=== PATIENT | female | born 1970 | race American Indian/Alaskan Native ===

== ENCOUNTER 2016-12-24 07:02 | Inpatient (IN) | payer OTHER ==
[2016-12-19 14:55] VITALS: BMI 50.8
[2016-12-24] MEDS ORDERED: Lactated Ringer's 1,000 ML IV ONE ×2 (08:03→11:00)
[2016-12-24] MEDS ORDERED: Rocuronium 10 mg/ml (5 ml) ONE ×2 (09:07→12:14)
[2016-12-24] MEDS ORDERED: Propofol 10 mg/ml Inj (20 ML) ONE ×2 (09:07→12:55)
[2016-12-24] MEDS ORDERED: Midazolam 2 MG/2 ML VIAL ONE (09:10)
--- NOTE | 2016-12-24 10:45 | CP.PCM.HP ---
History of Present Illness - History of Present Illness History of Present Illness: 46yo female with long h/o menorrhagia and pelvic discomfort due to fibroid uterus. Evaluation done in office with EMB negative. Discussed all options of treatment with patient, patient opting for definitive treatment with removal of uterus. Discussed the R/B/A of surgery with patient and all patient questions answered. Present on Admission - Present on Admission Any Indicators Present on Admission: No History of DVT/PE: No History of Uncontrolled Diabetes: No Urinary Catheter: No Decubitus Ulcer Present: No Past Patient History - Past Medical History & Family History Past Medical History?: Yes - Past Social History Smoking Status: Never Smoked - CARDIAC Hx Cardiac Disorders: Yes Hx Hypertension: Yes - PULMONARY Hx Respiratory Disorders: No - NEUROLOGICAL Hx Neurological Disorder: No - HEENT Hx HEENT Problems: No - RENAL Hx Chronic Kidney Disease: No - ENDOCRINE/METABOLIC Hx Endocrine Disorders: No - HEMATOLOGICAL/ONCOLOGICAL Hx Blood Disorders: No - INTEGUMENTARY Hx Dermatological Problems: No - MUSCULOSKELETAL/RHEUMATOLOGICAL Hx Musculoskeletal Disorders: No - GASTROINTESTINAL Hx Gastrointestinal Disorders: No - GENITOURINARY/GYNECOLOGICAL Hx Genitourinary Disorders: No - PSYCHIATRIC Hx Psychophysiologic Disorder: Yes Hx Anxiety: Yes Hx Depression: Yes - SURGICAL HISTORY Hx Surgeries: Yes Hx Tonsillectomy: Yes (2005) - ANESTHESIA Hx Anesthesia: Yes Hx Anesthesia Reactions: No Hx Malignant Hyperthermia: No Has any member of the family had a problem w/ anesthesia?: No Meds Allergies/Adverse Reactions: Allergies Allergy/AdvReac Type Severity Reaction Status Date / Time apple Allergy SHORTNESS Verified 12/19/16 14:54 OF BREATH pear Allergy SHORTNESS Verified 12/19/16 14:54 OF BREATH clindamycin AdvReac RASH Verified 12/19/16 14:53 Penicillins AdvReac SHORTNESS Verified 12/19/16 14:52 OF BREATH Physical Exam - Constitutional Appears: Well, No Acute Distress - Head Exam Head Exam: NORMAL INSPECTION - Eye Exam Eye Exam: Normal appearance, PERRL - ENT Exam ENT Exam: Mucous Membranes Moist - Neck Exam Neck exam: Positive for: Normal Inspection - Respiratory Exam Respiratory Exam: Clear to Auscultation Bilateral, NORMAL BREATHING PATTERN - Cardiovascular Exam Cardiovascular Exam: REGULAR RHYTHM - GI/Abdominal Exam GI & Abdominal Exam: Normal Bowel Sounds Additional comments: Soft/NT/ND. Uterus palpable at umbilicus. - Extremities Exam Extremities exam: Positive for: normal inspection. Negative for: calf tenderness, pedal edema - Neurological Exam Neurological exam: Alert, Oriented x3 - Psychiatric Exam Psychiatric exam: Normal Affect, Normal Mood Results - Vital Signs Recent Vital Signs: Last Vital Signs Temp 98.4 F 12/24/16 07:36 Pulse 81 12/24/16 07:40 Resp 20 12/24/16 07:36 BP 146/90 12/24/16 07:36 Pulse Ox 94 L 12/24/16 07:36 - Labs Labs: Laboratory Results - last 24 hr 12/24/16 12/24/16 07:45 07:58 Blood Type O POSITIVE Blood Type Confirm O POSITIVE Antibody Screen Negative BBK History Checked No verified bt - Imaging and Cardiology US - abdomen Status: Image reviewed by me, Report reviewed by me Assessment & Plan - Assessment and Plan (Free Text) Assessment: Symptomatic fibroid uterus Plan: As above. Routine postop observation and care - Date & Time Date: 12/24/16 Time: 10:46
[2016-12-24] MEDS ORDERED: Succinylcholine 200 mg/10 ml Inj IV ONE (10:51)
[2016-12-24] MEDS ORDERED: Gentamicin 80mg/50ml NS 80 MG/50 ML BAG IVPB ONE (10:53)
[2016-12-24] MEDS ORDERED: Vancomycin 1 g Inj ONE (10:53)
[2016-12-24] MEDS ORDERED: Gentamicin IV 80mg/50ml NS(PREMIX) IVPB ONE (11:00)
[2016-12-24] MEDS ORDERED: Vancomycin 1 g Inj IVPB ONE (11:15)
[2016-12-24] MEDS ORDERED: Dexamethasone 4 mg/1 ml ONE (11:24)
[2016-12-24] MEDS ORDERED: Vasopressin 20 Units/ml Inj IV ONE (11:53)
[2016-12-24] MEDS ORDERED: Vasopressin 20 Units/ml Inj ONE (11:55)
[2016-12-24] MEDS ORDERED: Neostigmine Methylsulfate 3mg/3ml Syringe IV ONE (12:25)
[2016-12-24] MEDS ORDERED: Neostigmine Methylsulfate 2 MG/2 ML ML IV ONE ×2 (12:25→12:51)
[2016-12-24] MEDS ORDERED: Lactated Ringer's 1,000 ML IV SCH (13:13)
--- NOTE | 2016-12-24 13:20 | PCM.SURG1 ---
Surgeon's Initial Post Op Note - Surgeon's Notes Surgeon: Panfilo Religion Instructor: Franicsca Type of Anesthesia: General Endo Anesthesia Administered By: camilo Pre-Operative Diagnosis: Fibroid uterus Operative Findings: Fibroid uterus ~20wk size. Normal tubes/ovaries bilaterally Post-Operative Diagnosis: same Operation Performed: Supracervical hysterectomy, bilateral salpingectomy Specimen/Specimens Removed: Uterus Estimated Blood Loss: EBL {In ML}: 400 Blood Products Given: N/A Drains Used: No Drains Post-Op Condition: Good Date of Surgery/Procedure: 12/24/16 Time of Surgery/Procedure: 13:20
[2016-12-24] MEDS: HYDROmorphone 0.5 mg/0.5 ml ISec IVP PRN ×3 (13:40→14:10)
[2016-12-24] MEDS: Oxycodone/Acetaminophen 5/325 mg Tab PO PRN (19:04)
--- NOTE | 2016-12-25 00:36 | OP ---
PROCEDURE DATE: 12/24/2016 PREOPERATIVE DIAGNOSIS: Symptomatic fibroid uterus. POSTOPERATIVE DIAGNOSIS: Symptomatic fibroid uterus. OPERATION PERFORMED: Supracervical hysterectomy via Pfannenstiel incision, bilateral salpingectomy. COMPLICATIONS: None. ESTIMATED BLOOD LOSS: 400 mL. URINE OUTPUT: 100 mL of clear urine at the end of procedure. FLUIDS: 1400 mL of Lactated Ringer's. SURGEON: Dr. Nora Whittaker. NUMERICAL CONTROL NESTING OPERATOR: Dr. Winifred Espinosa. Dr. Espinosa was present from the beginning of the procedure to the end of procedure. Dr. Espinosa was integral in exposing the surgical field, controlling intraoperative bleeding, and surgical removal of the uterus. ANESTHESIA: General. ANESTHESIOLOGIST: Dr. Alcantara. OPERATIVE FINDINGS: Fibroid uterus approximately 20-week size, and normal tubes and ovaries bilaterally. COMPLICATIONS: None. PROCEDURE: The patient was taken to the operating room, where general anesthesia was found to be adequate. The patient was prepped and draped in a normal sterile fashion in the dorsal supine position. A Pfannenstiel skin incision was made with scalpel. This was carried down through to the underlying layer of fascia with the scalpel. Midline defect was made in fascial layer with a scalpel. The fascial incision was then extended bilaterally with curved Rey scissors. The fascial layer was then from the underlying rectus muscles, both bluntly and sharply with curved Rey scissors. The rectus muscles were at the midline. The peritoneum was then identified, tented up with Moraima clamps x2, entered sharply with Metzenbaum scissors. This peritoneal incision was then extended superiorly and inferiorly with good visualization of the urinary bladder. The abdomen and pelvis were explored and the above findings noted. The uterus was exteriorized. Due to the size of the fundal uterine fibroid, decision was made for removal of the fundal fibroid to continue with safely moving the uterus. The fundus of the uterus was injected with a vasopressin solution. The fundus of the uterus was incised with electrocautery. The fundal fibroid was removed both bluntly and sharply with electrocautery. After removal of the fibroid, this incision of closed with a running stitch of 0 Vicryl. The round ligaments of the uterus were isolated bilaterally, electrocauterized and transected with LigaSure device bilaterally. The anterior surface of the broad ligament was sharply dissected of the anterior surface of the uterus. The fallopian tubes and suspensory ligaments of the ovaries were isolated bilaterally, electrocauterized and transected with LigaSure device bilaterally. The uterine arteries were skeletonized and isolated bilaterally, clamped with Davin clamps x2 bilaterally, transected bilaterally, and suture ligated with 0 Vicryl x2 bilaterally. Phaneuf clamps were placed at the cervix bilaterally, transected off the cervix bilaterally and suture ligated with 0 Vicryl bilaterally. As per the patient request, a supracervical hysterectomy was completed. The uterine body was removed from the cervix by electrocautery device. The cervical stump was suture ligated with 0 Vicryl in a series of 3 [id number] stitches. The fallopian tubes were isolated bilaterally, electrocauterized and transected from the ovaries bilaterally. The uterus as well as the fallopian tubes bilaterally were sent to pathology. The abdomen and pelvis were irrigated with a copious amounts of warm normal saline. Reinspection of all surgical pedicles proved hemostasis. All instruments were removed from the patient. The peritoneal layer was closed with a running stitch of 2-0 chromic. The rectus muscles were reapproximated at the midline with a running stitch of 2-0 chromic. The fascial layer was closed with a running stitch of 0 Vicryl. Subcutaneous tissue was reapproximated with a running stitch of 3-0 plain. The skin was closed with subcutaneous stitch of 3.0 Vicryl. The patient tolerated the procedure well. All sponge count, lap count, and needle counts were correct x2. The patient was given vancomycin and gentamicin preoperatively. There were no complications. The patient was taken to the recovery room in awake and stable condition. Michael Whittaker MD
[2016-12-25 07:58] LABS: BASO % 0.2 % (0.0-2.0); EOS % 0.1 % (0.0-4.0); HEMATOCRIT 33.3 % (34.0-47.0); LYMPH # 2.3 K/uL (1.0-4.3); LYMPH % 18.9 % (20.0-40.0); MEAN CELL VOLUME 84.1 fl (81.0-99.0); MEAN CORPUSCULAR HEMOGLOBIN 27.6 pg (27.0-31.0); MEAN CORPUSCULAR HGB CONC 32.9 g/dL (33.0-37.0); MEAN PLATELET VOLUME 8.6 fl (7.2-11.7); MONO # 0.8 K/uL (0.0-0.8); MONO % 6.5 % (0.0-10.0); NEUT % 74.3 % (50.0-75.0); WHITE BLOOD COUNT 12.1 K/uL (4.8-10.8)
[2016-12-25] MEDS ORDERED: Enoxaparin 40 mg Syringe SC SCH ×2 (09:00→11:30)
[2016-12-25] MEDS: Oxycodone/Acetaminophen 5/325 mg Tab PO PRN (11:31)
[2016-12-25] MEDS: Venlafaxine 37.5 mg ER Cap PO SCH (15:10)
[2016-12-25] MEDS: Metoprolol Succinate 50 mg XL Tab PO SCH (15:10)
--- NOTE | 2016-12-25 16:30 | CP.PCM.PN ---
Subjective - Date & Time of Evaluation Date of Evaluation: 12/25/16 Time of Evaluation: 16:28 - Subjective Subjective: Patient without complaints at this time. Patient denies any problems with pain , bleeding, nausea or vomiting, chest pain or shortness of breath, fevers or chills. Patient reports tolerating small amounts of solid food. Patient reports voiding without any complications. Objective - Vital Signs/Intake and Output Vital Signs (last 24 hours): Temp Pulse Resp BP Pulse Ox 97.8 F 71 20 141/71 96 12/25/16 16:00 12/25/16 16:00 12/25/16 16:00 12/25/16 16:00 12/25/16 16:00 Intake and Output: 12/25/16 12/25/16 06:59 18:59 Intake Total 2000 Output Total 850 Balance 1150 - Medications Medications: Current Medications Bupropion HCl (Wellbutrin Sr 150 Mg) 300 mg PO DAILY [facility] Clonazepam (Klonopin) 1 mg PO BID@0900,2100 [facility] Enoxaparin Sodium (Lovenox) 40 mg SC DAILY@1100 [facility] PRN Reason: Protocol Last Admin: 12/25/16 11:20 Dose: 40 mg Hydrochlorothiazide (Hydrodiuril) 25 mg PO DAILY [facility] Last Admin: 12/25/16 15:10 Dose: 25 mg Hydromorphone HCl (Dilaudid) 0.5 mg IVP Q5MIN PRN PRN Reason: Pain, moderate (4-7) Lactated Ringer's (Lactated Ringer's) 1,000 mls @ 50 mls/hr IV .Q20H [facility] Lactated Ringer's (Lactated Ringer's) 1,000 mls @ 125 mls/hr IV .Q8H [facility] Last Admin: 12/25/16 05:14 Dose: 125 mls/hr Ibuprofen (Motrin Tab) 600 mg PO Q6 PRN PRN Reason: Pain, moderate (4-7) Last Admin: 12/25/16 06:16 Dose: 600 mg Metoprolol Succinate (Toprol Xl) 50 mg PO DAILY [facility] Last Admin: 12/25/16 15:10 Dose: 50 mg Ondansetron HCl (Zofran Inj) 4 mg IVP ONCE PRN PRN Reason: Nausea/Vomiting Oxycodone/Acetaminophen (Percocet 5/325 Mg Tab) 2 tab PO Q4 PRN PRN Reason: Pain, severe (8-10) Stop: 12/27/16 13:14 Last Admin: 12/25/16 11:31 Dose: 2 tab Venlafaxine HCl (Effexor Xr) 37.5 mg PO DAILY [facility] Last Admin: 12/25/16 15:10 Dose: 37.5 mg - Labs Labs: 12/25/16 07:15 - Constitutional Appears: Well, No Acute Distress - Respiratory Exam Respiratory Exam: NORMAL BREATHING PATTERN - Cardiovascular Exam Cardiovascular Exam: REGULAR RHYTHM - GI/Abdominal Exam Additional comments: Abdomen soft, nontender, nondistended. Incision clean, dry, intact. No erythema, swelling, induration Assessment and Plan - Assessment and Plan (Free Text) Assessment: Postop day #1 status post supracervical hysterectomy, bilateral salpingectomy. Patient recovering well. Plan: Venodyne's while in bed, Lovenox for DVT prophylaxis Advance diet as tolerated Out of bed ambulate Pain control Postop CBC Incentive spirometer
[2016-12-25] MEDS: Lactated Ringer's 1,000 ML IV SCH (21:47)
[2016-12-25] MEDS: buPROPion SR 150 MG TABLET PO SCH (21:52)
[2016-12-26 08:15] VITALS: BP 132/92; PULSE 69; RESP 20; TEMP 98.8; O2SAT 97
[2016-12-26] MEDS: Metoprolol Succinate 50 mg XL Tab PO SCH (08:49)
[2016-12-26] MEDS: Venlafaxine 37.5 mg ER Cap PO SCH (08:49)
[2016-12-26] MEDS: buPROPion SR 150 MG TABLET PO SCH (08:50)
[2016-12-26] MEDS: Lactated Ringer's 1,000 ML IV SCH (09:11)
--- NOTE | 2016-12-26 09:31 | CP.PCM.PN ---
Subjective - Date & Time of Evaluation Date of Evaluation: 12/26/16 Time of Evaluation: 09:29 - Subjective Subjective: Pt withoutcomplaints. Pain well controlled. Tolerating regular diet. Ambulating well. Voiding well. Objective - Vital Signs/Intake and Output Vital Signs (last 24 hours): Temp Pulse Resp BP Pulse Ox 98.8 F 69 20 132/92 H 97 12/26/16 08:14 12/26/16 08:14 12/26/16 08:14 12/26/16 08:14 12/26/16 08:14 - Medications Medications: Current Medications Bupropion HCl (Wellbutrin Sr 150 Mg) 300 mg PO DAILY [facility] Last Admin: 12/26/16 08:50 Dose: 300 mg Clonazepam (Klonopin) 1 mg PO BID@0900,2100 [facility] Last Admin: 12/26/16 09:03 Dose: 1 mg Enoxaparin Sodium (Lovenox) 40 mg SC DAILY@1100 [facility] PRN Reason: Protocol Last Admin: 12/25/16 11:20 Dose: 40 mg Hydrochlorothiazide (Hydrodiuril) 25 mg PO DAILY [facility] Last Admin: 12/26/16 08:49 Dose: 25 mg Hydromorphone HCl (Dilaudid) 0.5 mg IVP Q5MIN PRN PRN Reason: Pain, moderate (4-7) Lactated Ringer's (Lactated Ringer's) 1,000 mls @ 50 mls/hr IV .Q20H [facility] Last Admin: 12/26/16 09:11 Dose: 50 mls/hr Lactated Ringer's (Lactated Ringer's) 1,000 mls @ 125 mls/hr IV .Q8H [facility] Last Admin: 12/25/16 05:14 Dose: 125 mls/hr Ibuprofen (Motrin Tab) 600 mg PO Q6 PRN PRN Reason: Pain, moderate (4-7) Last Admin: 12/26/16 09:02 Dose: 600 mg Metoprolol Succinate (Toprol Xl) 50 mg PO DAILY [facility] Last Admin: 12/26/16 08:49 Dose: 50 mg Ondansetron HCl (Zofran Inj) 4 mg IVP ONCE PRN PRN Reason: Nausea/Vomiting Oxycodone/Acetaminophen (Percocet 5/325 Mg Tab) 2 tab PO Q4 PRN PRN Reason: Pain, severe (8-10) Stop: 12/27/16 13:14 Last Admin: 12/25/16 11:31 Dose: 2 tab Venlafaxine HCl (Effexor Xr) 37.5 mg PO DAILY [facility] Last Admin: 12/26/16 08:49 Dose: 37.5 mg - Labs Labs: 12/25/16 07:15 - Constitutional Appears: Well, No Acute Distress - Head Exam Head Exam: NORMAL INSPECTION - Eye Exam Eye Exam: Normal appearance, PERRL - ENT Exam ENT Exam: Mucous Membranes Moist - Respiratory Exam Respiratory Exam: Clear to Ausculation Bilateral, NORMAL BREATHING PATTERN - Cardiovascular Exam Cardiovascular Exam: REGULAR RHYTHM - GI/Abdominal Exam Additional comments: Soft/NT/ND. Inc C/D/I. No erythema, swelling, induration. Normal BS - Extremities Exam Extremities Exam: Normal Inspection. absent: Calf Tenderness, Pedal Edema Assessment and Plan - Assessment and Plan (Free Text) Assessment: POD #2 s/p Supracervical Hyst -- recovering well Plan: Discharge home with postop precautions F/U in 1 wk in office
--- NOTE | 2016-12-26 09:33 | CP.PCM.DIS ---
Provider - Provider Date of Admission: 12/24/16 13:13 Attending physician: Michael Whittaker MD Primary care physician: Michael Whittaker MD Time Spent in preparation of Discharge (in minutes): 10 Diagnosis - Discharge Diagnosis (1) Fibroid uterus Status: Acute Hospital Course - Lab Results Lab Results: Most Recent Lab Values WBC 12.1 K/uL (4.8-10.8) H 12/25/16 07:15 RBC 3.96 Mil/uL (3.80-5.20) 12/25/16 07:15 Hgb 11.0 g/dL (12.0-16.0) L 12/25/16 07:15 Hct 33.3 % (34.0-47.0) L 12/25/16 07:15 MCV 84.1 fl (81.0-99.0) 12/25/16 07:15 MCH 27.6 pg (27.0-31.0) 12/25/16 07:15 MCHC 32.9 g/dL (33.0-37.0) L 12/25/16 07:15 RDW 14.0 % (11.5-14.5) 12/25/16 07:15 Plt Count 304 K/uL (130-400) 12/25/16 07:15 MPV 8.6 fl (7.2-11.7) 12/25/16 07:15 Neut % (Auto) 74.3 % (50.0-75.0) 12/25/16 07:15 Lymph % (Auto) 18.9 % (20.0-40.0) L 12/25/16 07:15 [place] % (Auto) 6.5 % (0.0-10.0) 12/25/16 07:15 Eos % (Auto) 0.1 % (0.0-4.0) 12/25/16 07:15 Baso % (Auto) 0.2 % (0.0-2.0) 12/25/16 07:15 Neut # 9.0 K/uL (1.8-7.0) H 12/25/16 07:15 Lymph # 2.3 K/uL (1.0-4.3) 12/25/16 07:15 [place] # 0.8 K/uL (0.0-0.8) 12/25/16 07:15 Eos # 0.0 K/uL (0.0-0.7) 12/25/16 07:15 Baso # 0.0 K/uL (0.0-0.2) 12/25/16 07:15 Blood Type O POSITIVE 12/24/16 07:45 Blood Type Confirm O POSITIVE 12/24/16 07:58 Antibody Screen Negative 12/24/16 07:45 BBK History Checked No verified bt 12/24/16 07:45 - Hospital Course Hospital Course: Admitted on 12/24/16 for hysterectomy. Normal postop course. Discharged on 12/26 - Date & Time of H&P Date of H&P: 12/24/16 Time of H&P: 09:32 Discharge Exam - Head Exam Head Exam: NORMAL INSPECTION Discharge Plan - Follow Up Plan Condition: GOOD Disposition: HOME/ ROUTINE Referrals: Michael Whittaker MD [Primary Care Provider] -
== END 2016-12-26 10:15 | disposition home or self-care (01) | DRG 743 ==
LOC: H.OPSURG 07:02 → H.PEDS 13:13
PROVIDERS: ADMIT Obstetrics & Gynecology; ATTEND Obstetrics & Gynecology
PROC: 0UT70ZZ Resection of Bilateral Fallopian Tubes, Open Approach (ICD-10-PCS; 2016-12-24)
PROC: 0UT90ZZ Resection of Uterus, Open Approach (ICD-10-PCS; principal; 2016-12-24 09:45)
DX: D25.9 Leiomyoma of uterus, unspecified (principal); Z88.0 Allergy status to penicillin; Z88.1 Allergy status to other antibiotic agents; Z91.018 Allergy to other foods